=== PATIENT | female | born 1970 | race Caucasian/White ===

== ENCOUNTER 2024-04-14 15:38 | Emergency (ER) | payer OTHER, SELFPAY ==
--- NOTE | ~2024-04-14 | XR_ITS ---
EXAMINATION: XR chest 2V Exam Date/Time: 04/14/2024 16:40 CDT HISTORY: cough, sob x2 weeks. New fever x yesterday Comparison: None. RESULT: Lines, tubes, and devices: Cholecystectomy clips. Lungs and pleura: Clear. Cardiomediastinal silhouette: Stable. Other: No acute osseous or upper abdominal finding. IMPRESSION: No acute cardiopulmonary process. Reviewed, dictated and finalized at location K.
[2024-04-14 15:47] VITALS: BP 123/69; PULSE 113; RESP 16; TEMP 37.7; O2SAT 97
--- NOTE | 2024-04-14 16:30 | ED.URI ---
HPI - URI/Sore Throat General Chief Complaint: Upper Respiratory Infection Stated Complaint: Cough/Congestion/Fever Time Seen by Provider: 04/14/24 16:24 Source: patient and RN notes reviewed Mode of arrival: ambulatory Limitations: no limitations History of Present Illness HPI Narrative: Patient presents today with a 2 week history of cough, nasal congestion with occasional wheezing. She is currently mildly short of breath even at rest. For the past 2 days she has had a fever up to 101. She finished a Z-Neo and Medrol Dosepak 5 days ago from her PCP. These did not provide her much relief. She has also been taking Mucinex DM and ibuprofen with mild relief as well. Patient is a former smoker and quit in the . Related Data Home Medications Medication Instructions Recorded Confirmed acidophilus 100 million 1 cap PO DAILY 04/14/24 04/14/24 cell-pectin, citrus 10 mg capsule albuterol sulfate 90 mcg/actuation 1 puff inhalation QID PRN Wheezing 04/14/24 04/14/24 aerosol inhaler (Ventolin HFA) atenolol 25 mg tablet 25 mg PO DAILY 04/14/24 04/14/24 cetirizine 10 mg tablet 10 mg PO DAILY 04/14/24 04/14/24 cholecalciferol (vitamin D3) 50 50 mcg PO DAILY 04/14/24 04/14/24 mcg (2,000 unit) capsule (Vitamin D3) montelukast 10 mg tablet 10 mg PO HS 04/14/24 04/14/24 [id number]-QP 0.4 mg-calcium 162 1 tablet PO DAILY 04/14/24 04/14/24 mg-iron 18 or-ctceiij-wmycsa tablet pantoprazole 20 mg tablet,delayed 40 mg PO QAM 04/14/24 04/14/24 release Allergies Allergy/AdvReac Type Severity Reaction Status Date / Time No Known Allergies Allergy Verified 04/14/24 16:04 Review of Systems Review of Systems: CONSTITUTIONAL: Denies body aches, chills, or sweats.+ fever EYES: Denies visual changes, redness, or discharge. ENT: Denies rhinorrhea, sore throat, or otalgia.+ congestion CARDIOVASCULAR: Denies chest pain, palpitations, or edema. RESPIRATORY: + cough, shortness of breath, wheezing GASTROINTESTINAL: Denies abdominal pain, nausea, vomiting, or diarrhea. GENITOURINARY: Denies dysuria or hematuria. SKIN: Denies rash, itching, or wounds. MUSCULOSKELETAL: Denies back pain, joint pain, or myalgia. NEUROLOGIC: Denies headache, numbness, tingling, or weakness. PSYCH: Denies depression or anxiety. [facility] Social History Social History (Updated 04/14/24 @ 16:32 by Isabelle Heath, [facility], ) Years smoked: 4 Smoking status: Former smoker Tobacco type: cigarettes Comments At time of signature, I have reviewed and agree with nursing past medical, surgical, social and family history unless otherwise noted. Please see nursing chart for further information. There is no relevant family history pertinent to the presenting complaint Exam Narrative: GENERAL: Ill-appearing, well-nourished, and in no acute distress. HEAD: Normocephalic, atraumatic. EYES: EOMI. No redness or drainage. Conjunctivae normal. ENT: Mucous membranes pink and moist. Nares congested. No rhinorrhea. TMs normal bilaterally. Throat normal. Uvula midline. NECK: Normal AROM. Supple. No lymphadenopathy. CHEST: No respiratory distress. Diminished in the left lower lobe, otherwise clear. Harsh cough noted. HEART: Regular rate and rhythm. No murmur appreciated. EXTREMITIES: Normal range of motion. No edema. SKIN: Warm, dry, no rash. Capillary refill normal. Normal skin turgor. NEURO: No focal deficits. Alert and oriented x3. Gait steady. PSYCH: Normal affect. No signs of depression or anxiety. Course Course Level of Care: Express Care Visit Vital Signs Vital signs: Vital Signs Temperature 100 F H 04/14/24 15:47 Pulse Rate 113 H 04/14/24 15:47 Respiratory Rate 16 04/14/24 15:47 Blood Pressure 123/69 04/14/24 15:47 Pulse Oximetry 97 04/14/24 15:47 Oxygen Delivery Room Air 04/14/24 15:47 Temperature 100 F H 04/14/24 15:47 Pulse Rate 113 H 04/14/24 15:47 Respiratory Rate 16 04/14/24 15:47 Blood
== END 2024-04-14 17:02 | disposition home or self-care (01) ==
PROVIDERS: Emergency Provider Nurse Practitioner; PCP Nurse Practitioner Family
DX: J22 Unspecified acute lower respiratory infection (principal); Z87.891 Personal history of nicotine dependence
CPT/HCPCS: 71046; 99213; G0463